=== PATIENT | female | born 2000 | race Two or more races ===

== ENCOUNTER 2024-05-27 07:07 | Emergency (ER) | payer MEDICAID, SELFPAY ==
[2024-05-27 07:24] VITALS: BP 124/84; PULSE 85; RESP 17; TEMP 37.1; O2SAT 98; BMI 29.2
--- NOTE | 2024-05-27 07:31 | XR_ITS ---
Examination: Complete OB ultrasound greater than 14 weeks Date and time of exam: May 27, 2024 0844 hours INDICATIONS: Vaginal bleeding beginning last night Findings: Viable intrauterine single fetus with single amniotic sac presentation variable Cardiac motion 144 BPM Placenta fundal grade 1 Umbilical cord insertion 3 vessel seen Amniotic fluid index 14.8 cm Cervix 4.3 cm Right ovary obscured by bowel gas Left ovary 4.0 cm arterial flow 27 mm left ovarian cyst. Composite estimated gestational age based on BPD, head circumference, abdominal circumference, femur length is 19 weeks 2 days Estimated weight 285 g. Survey of intracranial anatomy, spinal anatomy, abdominal anatomy, four-chamber heart performed with no abnormalities identified. Impression: Viable intrauterine gestation variable presentation No placental hemorrhage.
--- NOTE | 2024-05-27 07:31 | XR_ITS ---
Examination: Abdomen sonogram, Limited Date and time of exam: May 27, 2024 0826 hours INDICATIONS: Right upper abdominal pain and vomiting beginning 10:00 PM last night Technique: Real-time batres scale transabdominal sonographic images of the upper abdomen obtained. Findings: Normal gallbladder Normal common bile duct 0.3 cm Pancreatic head 2.5 cm Liver 18.5 cm fatty infiltration lobular contour no focal liver lesions Normal hepatopedal portal venous flow Patent IVC IMPRESSION: Normal gallbladder Primary hepatocellular disease
[2024-05-27 08:30] LABS: Basophils % (Auto) 0 % (0-2.5); Eosinophils % (Auto) 0 % (0-10); Hemoglobin 12.1 g/dL (12.0-16.0); Immature Granulocytes % (Auto) 0 % (0-0); Immature Granulocytes Auto 0.05 Thou/mm3 (0.00-0.00); Lymphocytes # (Auto) 1.8 Thou/mm3 (1.0-4.8); Lymphocytes % (Auto) 16 % (10-50); Mean Corpuscular HGB Conc 34.6 g/dl (31.0-37.0); Mean Corpuscular Hemoglobin 30.1 pg (25.0-35.0); Mean Corpuscular Volume 87 fL (80-100); Monocytes # (Auto) 0.6 Thou/mm3 (0.0-0.8); Monocytes % (Auto) 5 % (0-12); Neutrophils # (Auto) 9.1 Thou/mm3 (1.8-7.7); Neutrophils % (Auto) 79 % (37-80); Nucleated Red Blood Cell % 0 /100 WBC (0); Platelet Count 190 Thou/mm3 (140-440); RDW Standard Deviation 44.6 fL (36.4-46.3); Red Blood Count 4.02 Miln/mm3 (4.00-5.20); White Blood Count 11.6 Thou/mm3 (3.6-11.0)
[2024-05-27 08:52] LABS: Alanine Aminotransferase 15 U/L (10-49); Albumin, Serum 4.1 gm/dL (3.5-5.0); Albumin/Globulin Ratio 1.3 (1.2-2.2); Alkaline Phosphatase 61 U/L (46-116); Anion Gap 8 (7-16); Aspartate Amino Transferase 21 U/L (0-34); BUN/Creatinine Ratio 12 Ratio (12-20); Bilirubin,Total 0.5 mg/dL (0.3-1.2); Blood Urea Nitrogen 6 mg/dL (9-23); Calcium 9.6 mg/dL (8.3-10.6); Calcium (Corrected) 9.6 mg/dL (8.5-10.1); Carbon Dioxide 25.4 mMol/L (20.0-31.0); Chloride 104 mMol/L (98-107); Creatinine (Component) 0.5 mg/dL (0.6-1.3); Estimated Creatinine Clearance 156.8 mL/min (>60); Globulin 3.1 gm/dL (2.3-3.5); Glucose 101 mg/dL (74-106); Lipase 31 U/L (12-53); Osmolality,Calculated 271 (275-295); Potassium 3.7 mMol/L (3.4-5.1); Sodium 137 mMol/L (136-145); Total Protein 7.2 gm/dL (5.7-8.2); eGFR > 60 See Note
[2024-05-27 09:16] VITALS: BP 136/81; PULSE 83; RESP 18; TEMP 37; O2SAT 99
[2024-05-27 09:34] LABS: Beta HCG,Quantitative 6895 mIU/mL (<5.0)
--- NOTE | 2024-05-27 09:38 | EDNOTE_ITS ---
<Statement entered by Charlotte Lozano MD - 05/27/24 14:04> As co-signing physician, I was present and available for consult prn. I concur with the plan and care as documented by the midlevel provider. Nausea/Vomit./Diarrhea-RME/HPI General Chief complaint: Abdominal Pain Stated complaint: ABD PAIN AND VOMITING X 2200L 12 WKS Time Seen by Provider: 05/27/24 07:31 Arrival date/time: 05/27/24 07:07 24-year-old female with no significant medical problems presents to the emergency department today with complaints of nausea vomiting and upper abdominal pain patient reports being approximately 16 weeks Limitations: no limitations Related Data Previous Rx's ?Medication ?Instructions ?Recorded metoclopramide HCl 10 mg tablet 10 mg PO Q6H PRN nause a and 05/27/24 (Reglan) vomiting #30 tabs Allergies Allergy/AdvReac Type Severity Reaction Status Date / Time No Known Allergies Allergy Verified 05/27/24 07:09 Review of Systems Review of Systems Systems Reviewed: All systems reviewed, normal except as documented Constitutional Constitutional: Reports system reviewed and no additional complaints, except as documented, Denies fever(s) and Denies headache(s) Eyes Eyes: Reports system reviewed and no additional complaints, except as documented and Denies blurry vision ENT Ears, Nose, Mouth, and Throat: Reports system reviewed and no additional complaints, except as documented, Denies headache(s), Denies nasal congestion and Denies nasal discharge Cardiovascular Cardiovascular: Reports system reviewed and no additional complaints, except as documented, Denies chest pain and Denies dyspnea Respiratory Respiratory: Reports system reviewed and no additional complaints, except as documented, Denies chest congestion, Denies cough and Denies dyspnea Gastrointestinal Gastrointestinal: Reports system reviewed and no additional complaints, except as documented, Reports abdominal pain, Reports nausea and Reports vomiting Integumentary/Breasts Skin/Breast: Reports system reviewed and no additional complaints, except as documented and Denies rash Neurologic Neurologic: Reports system reviewed and no additional complaints, except as documented, Reports as per HPI and Denies headache(s) Past Medical History Social History SMOKING STATUS: Never smoker ED Exam General Limitations: Present no limitations General appearance: Present alert and in no apparent distress Head Head exam: Present atraumatic, normocephalic and normal inspection Eye Eye exam: Present normal appearance, PERRL and EOMI; Absent conjunctival injection ENT ENT exam: Present normal exam, normal oropharynx and mucous membranes moist Neck Neck exam: Present normal inspection, full ROM and trachea midline Chest Chest inspection: Present normal inspection and symmetric chest wall rise Respiratory Respiratory exam: Present normal lung sounds bilaterally; Absent respiratory distress Cardiovascular Cardiovascular exam: Present regular rate, normal rhythm and normal heart sounds Abdominal Exam Abdominal exam: Present soft and normal bowel sounds; Absent distention, tenderness, guarding, rebound or rigidity Abdominal tenderness: Present epigastrium and mild Extremities Exam Extremities exam: Present normal inspection and full ROM Back Exam Back exam: Present normal inspection and full ROM Neurological Exam Neurological exam: Present alert, oriented X3 and CN II-XII intact Psychiatric Psychiatric exam: Present normal affect and normal mood Skin Skin exam: Present warm, dry, intact and normal color Course Quality Measures none Orders Category Date Time Status US OB >= 14 weeks Fetus Stat Exams 05/27/24 07:31 Completed US gall bladder Stat Exams 05/27/24 07:31 Completed ABO/RH Type Stat Lab 05/27/24 07:57 Completed Beta HCG,Quantitative Stat Lab 05/27/24 07:57 Completed CBC Stat Lab 05/27/24 07:57 Completed Comprehensive Metabolic Panel Stat Lab 05/27/24 07:57 Completed Lipase Stat Lab 05/27/24 07:57 Completed UA, C/S IF [Urinalysis, C/S if Indicated] Stat Lab 05/27/24 10:00 Completed Vital Signs Vital signs: Vital Signs Temperature 98.7 F 05/27/24 07:24 Pulse Rate 85 05/27/24 07:24 Respiratory Rate 17 05/27/24 07:24 Blood Pressure 124/84 05/27/24 07:24 Pulse Oximetry (%) 98 05/27/24 07:24 Oxygen Delivery Method Room Air 05/27/24 07:24 O2 saturation 98% room air within normal limits Nausea/Vomiting/Diarrhea MDM Narrative MDM Narrative:: 24-year-old female with no significant medical problems presents to the emergency department today with complaints of nausea vomiting and upper ab dominal pain patient reports being approximately 16 weeks On exam patient well-appearing patient does not appear ill or toxic patient does not appear in acute distress Lab work and ultrasound obtained no acute emergent findings noted patient is measuring approximate 19 weeks and 2 days this was relayed to the patient Patient discharged home in no distress to follow-up with primary care doctor in the next 24 to 48 hours and for any worsening symptoms to return to the ER immediately Patient data External records reviewed:: [facility] previous records Clinical information provided by:: patient Social determinants that could affect healthcare access:: none Patient has the following chronic illnesses:: None How is presenting disease/condition affected by chronic disease/condition?: no chronic disease Evaluation data The following diagnostics were reviewed and interpreted by me:: lab results and radiology exam(s) Lab and/or radiology exams considered but not ordered:: Labs and radiology obtained Interpretation Summary: Reviewed by me Medications / Prescriptions Medications / Prescriptions considered but not ordered:: Given Medication administrations:: Given Consultations Consultation(s) initiated? (list below): No Diagnosis Nausea Differential Diagnosis: traveler's diarrhea, food poisoning and gastroenteritis Most likely diagnosis given after review of the tests above:: Nausea vomiting Admission Indicated Admission indicated?: not indicated Admission Request Was there a request for admission?: No Disposition Plan Disposition Plan: Discharge Discharge Attestation Discharge Attestation: The patient and all family members were given an opportunity to ask questions and understood the discharge instructions. Discharge instructions specifically effects, indications for sooner follow up or return to the emergency department, and the expected course of current diagnosis. Patient condition: Stable Discharge Plan Plan Patient Disposition: HOME (Self Care) Disposition Comment: Stable Prescriptions/Referrals Prescriptions/Med Rec: New metoclopramide HCl [Reglan] 10 mg tablet 10 mg PO Q6H PRN (Reason: nausea and vomiting) Qty: 30 0RF Referrals: Roque Mayes MD [Primary Care Provider] - In 1 week Problem List Clinical Impression: Nausea and vomiting during Patient/Caregiver Discharge Instructions Education Materials: ED Vomiting (Adult) Additional Instructions: Please follow up with your primary care doctor in the next 24-48hrs for any worsening symptoms return here immediately Print Language: Emirati Stand Alone Forms: Gwendolyn Award Info., Patient Portal Info Letter PA/KATHE Supervising Physician ANDREA/KATHE Supervising Physician: Dr. LOZANO
[2024-05-27 10:08] LABS: Collection Type, Urine Clean Catch
[2024-05-27 10:25] LABS: Bacteria,Urine Rare; Bilirubin,Urine Negative (Negative); Blood,Urine Negative (Negative); Clarity,Urine Clear (Clear/Hazy); Color,Urine Colorless (Lt Yel-Yel); Culture Indicated,Urine Not Indicated; Glucose, Urine Negative (Negative); Hyaline Casts,Urine < 1 /hpf (0-1); Ketones,Urine Negative (Negative); Leukocyte Esterase,Urine Positive (Negative); Nitrite,Urine Negative (Negative); Protein,Urine Negative (Neg - Trace); RBC,Urine 1 /hpf (0-3); Specific Gravity,Urine 1.006 (1.001-1.035); Squamous Epithelial Cell,Urine 1 /hpf (0-5); Urobilinogen,Urine Negative mg/dL (0.0-1.0); WBC,Urine < 1 /hpf (0-5)
== END 2024-05-27 09:48 | disposition home or self-care (01) ==
PROVIDERS: Nurse Practitioner Primary Care; Emergency Provider Emergency Medicine; PCP Internal Medicine
DX: O21.9 Vomiting of pregnancy, unspecified (principal); O99.891 Other specified diseases and conditions complicating pregnancy; R10.11 Right upper quadrant pain; Z3A.19 19 weeks gestation of pregnancy
CPT/HCPCS: 36415; 76705; 76805; 80053; 81001; 83690; 84702; 85025; 86900; 86901; 99284

== ENCOUNTER 2024-08-21 09:33 | Outpatient (AMB) | payer MEDICAID, SELFPAY ==
[2024-08-21 09:59] VITALS: BP 128/82; PULSE 122; RESP 20; TEMP 36.6; O2SAT 95; BMI 29.7
--- NOTE | 2024-08-21 09:59 | OBCLNT_ITS ---
Vital Signs 08/21/24 09:59 Height 1.55 m Height Method Stated Weight 71.384 kg Weight Measurement Method Standing Scale BMI 29.7 BP 128/82 Blood Pressure Source Automatic Cuff Blood Pressure Location Right Upper Arm Position Sitting Respiration 20 Pulse 122 H Pulse Source Monitor Temp 97.9 F Temp Source Oral Pulse Oximetry (%) 95 Oxygen Delivery Method Room Air Allergies/Home Meds Allergies & Medications Allergies No Known Allergies Allergy (Verified 08/21/24 10:00) Medication Reconciliation metoclopramide HCl 10 mg tablet (Reglan) 10 mg PO Q6H PRN nausea and vomiting #30 tabs 05/27/24 [Rx Confirmed 08/21/24] aspirin 81 mg tablet,delayed release (Adult Aspirin Regimen) 81 mg PO QDAY 30 days #30 tabs 08/21/24 [Rx] blood sugar diagnostic (Blood Glucose Test strips) #10 ea 08/21/24 [Rx] blood-glucose meter #1 ea 08/21/24 [Rx] lancets #100 ea 08/21/24 [Rx] Intake Visit Data Collection New Patient or Established: Established Patient (seen at [facility] within 3 years) Reason for Visit:: OBI TRANSFER Seen by Clinical Staff ONLY (RN/MA): No Cager Operator Required: No Do You Feel Safe at Home: Yes Authorities Contacted: N/A PCP or OBGYN visit in last 3 months: Yes Hx Now: Yes Are you currently on any form of Control: No Last menstrual period: 01/11/24 Pain Present Currently: No Pain Scale Used: Cisneros-Junior/Numerical Pain scale:: 0 Smoking Status Smoking Status: Never smoker Questionnaires Covid-19 Vaccine Questionnaire Has patient been vacinated for Covid-19 Have you been vacinated for Covid-19: No PHQ-9 PHQ-2 Over the last 2 weeks, how often have you been bothered by any of the following problems? 1. Little interest or pleasure in doing things: not at all 2. Feeling down, depressed, or hopeless: not at all Total score: 0 PHQ-9 3. Trouble falling or staying asleep, or sleeping too much: Not at all 4. Feeling tired or having little energy: Not at all 5. Poor appetite or overeating: Not at all 6. Feeling bad about yourself - or that you are a failure or have let yourself or your family down: Not at all 7. Trouble concentrating on things, such as reading the newspaper or watching television: Not at all 8. Moving or speaking so slowly that other people could have noticed? - Or the opposite - being so fidgety or restless that you have been moving around a lot more than usual: not at all 9. Thoughts that you would be better off or of hurting yourself in some way: Not at all Total score: 0 Source: Developed by Drs. Anderson Guzman, Jasmin Mai, Yvan Arambula and colleagues, with an educational michela from [employer]. Depression screen completed yes Social History Living Situation History Marital Status: Lives With: Family Housing: Apartment Tobacco History Smoking Status: Never smoker Second Hand Smoke Exposure: No Alcohol History Alcohol Intake: Never Domestic Abuse History Do You Feel Safe at Home: Yes Past Medical History Past Medical History Have you ever been diagnosed with any of the following: Endocrine Problems Diabetes Mellitus Type 2: No (MOTHER) History of Present Illness HPI Narrative 24 yo IUP 32w3 for OBI. transfer fro Dr Cruz for care. 1st visit in first tri, uncomplicated . lmp 01/11/24. EDC 10/15/24. menses q month. denies existing medical problem, no social habit, no surgery. no PTL. complaints. first was uncomplicated. taking PNV. 1 hr gtt: 192. 3 hr gtt was normal/all value. NIPT/carrier screen wnl, 35/11.7/176,UT-, HBSAG-,HIV-,HC-, GC/CT-,O+,abs-, RPR::NR, rub:NI. a1c: 4.9, takes PNV OB Initial Visit OB Flowsheet OB Flowsheet Initial Weight: Not Recorded Date -?-?-?-?-?-?-?-?-?-?-?-?- EGA Weight BP Alb Glu CTX Pres Fundal ht FHR Mov Dilation Station Effacement Hx Notes Visit Note 08/21/24 -?-?-?-?-?-?-?-?-?-?-?-?- 31w 6d 71.384 kg 128/82 absent cephalic 31 146 active 24 yo G@p! at 32w3 for OBI, transfer from Dr. Cruz. elevated 1 hr GTT: 192. 3 hr:wnl, A1c< 4.9. fetus active, no PTL complaints. TDAP today, FKC bid, review lab with patient: start glucose monitoring 4 x/day, review GDM diet, ptl precaution, discuss fkc, continue PNV, schedule MFM scan, order glucometer/strips and lancets, start low dose ASA, rtc 2 week OB check, ante testing nv. schedule at [facility] for diabetic teaching. rtc 2week, TDAP Menstrual History Menstrual reliability: definite Flow: normal Menstrual regularity: irregular Monthly: No Age at menarche: 15 On control pills at conception: No Other symptoms: HEADACHES OB History : 2 Para: 1 # of Living Children: 1 Delivery History 1st : Child's name: BRIANNA date: 09/11/18 sex: female Gestational age at delivery (weeks): 40 Delivery type: vaginal Delivery complications: NONE History of depression before or after : No Infection History & Risk Evaluation History of STDs: none Genetic Screening & History Genetic Screening/Teratology Counseling - Includes patient, baby's father, or anyone in either family with: 1. Patient's age 35 years or older as of estimated date of delivery: No 2. Thalassemia (Latvian, Chinese, Mediterranean, or Background); MCV less than 80: No 3. Neural Tube Defect (Meningomyelocele, Spina Bifida, or Anencephaly): No 4. Congenital Heart Defect: No 5. Down Syndrome: No 6. Franco-Sachs (Ashkenazi Yarsanism, Cajun, Gibraltarian Marty): No 7. Selina Disease (Ashkenazi Yarsanism): No 8. Familial Dysautonomia (Ashkenazi Yarsanism): No 9. Sickle Cell Disease or Trait (): No 10. Hemophilia or other blood disorders: No 11. Muscular Dystrophy: No 12. Cystic Fibrosis: No 13. Brookings's Chorea: No 14. Mental Retardation/Autism: No 15. Other inherited genetic or chromosomal disorder: No 16. Maternal Metabolic Disorder (EG,TYPE 1 Diabetes, PKU): No 17. Patient or baby's father had a child with defects not listed above: No 18. Recurrent loss or a stillbirth: No 19. Medications (including supplements, vitamins, herbs or otc drugs)/illicit/recreational drugs/alcohol since last menstrual period: No 20. Any other: No Infection History 1. Live with someone with TB or exposed to TB: No 2. Rash or viral illness since last menstrual period: No 3. Hepatitis B,C: No Other (see comments) Source: [employer] Review of Systems Review of Systems Systems Reviewed: All systems reviewed, normal except as documented Exam General Limitations: no limitations General Appearance: alert, in no apparent distress, comfortable, cooperative, healthy appearing, well developed and well groomed Head Head exam: atraumatic, normocephalic and normal inspection Chest Chest inspection: Present normal inspection and symmetric chest wall rise Resp Respiratory exam: Present normal lung sounds bilaterally Card Cardiovascular exam: Present regular rate, normal rhythm and normal heart sounds Abdominal Abdominal exam: Present soft and normal bowel sounds Psych Psychiatric exam: Present normal affect and normal mood Office Procedures OB Clinic LOC & Office Proc's Nursing/Assessment Patient Status: Established Patient OB Clinic Nursing Assessment: Medication Reconciliation, Update PMH in EMR and Vital Signs OB Clinic Coordination of Care: Complex Care and Chronic Disease 1-5, Consent,re cords obtained, informed consent, Education Simp Pt/Fam, Lab and Imaging orders, Results/Orders obtained and Staff clarify orders Special Needs: Heart tones Miscellaneous Interventions: Blood/Urine Collection Established Patient Charge Established Patient Point Assignment: 165 Established Patient Point Charge: EP Level 5 (160-above) Injection/Vaccine Admin Admin 1st Vaccine: Yes Immunizations diphth,pertus(acell),tetanus 2.5 Lf unit-8 mcg-5 Lf/0.5mL IM syringe Performing Provider: Niki Winslow CNM Performing Location: [facility] Administered by: Viktoria Gale MA on 08/21/24 11:01 Dose Route Admin Location Dispensed Lot Number Expiration Date [facility] Office Rental Clerk 0.5 mL IM Right Deltoid 0.5 mL [id number] 07/05/26 [id number] [employer] [facility] V[facility] Given Date VIS Provided VIS Publication Date 08/21/24 Single Vaccine 24 Eligibility Eligibility Date Funding Source Public Non-[facility] Assessment & Plan Diagnosis / Problem List (1) Normal in multigravida in third trimester: Status: Acute (2) Gestational diabetes mellitus in , diet controlled: Status: Acute Plan continue PNV, start glucose monitoring, kit ordered, schedule for GDM teaching at Dr Cruz, begin nst/bpp nv, TDAP today, discuss GDM diet, walk 40 minute daily,ptl precaution, schedule anatomy scan with mfm Additional Plan Follow Up: 2 Weeks (obc)
== END 2024-08-21 10:43 | disposition home or self-care (01) ==
LOC: HODSOBC 09:33
PROVIDERS: PCP Internal Medicine; Referring Provider Internal Medicine; Supervising Provider Advanced Practice Midwife; Visit Provider Advanced Practice Midwife
DX: O09.893 Supervision of other high risk pregnancies, third trimester (principal); Z3A.31 31 weeks gestation of pregnancy; O24.410 Gestational diabetes mellitus in pregnancy, diet controlled; Z23 Encounter for immunization
CPT/HCPCS: 81001; 90471; 90715; 99215; G0463

== ENCOUNTER 2024-09-04 11:00 | Outpatient (AMB) | payer MEDICAID, SELFPAY ==
[2024-09-04 11:30] VITALS: BP 116/74; PULSE 99; RESP 18; TEMP 36.2; O2SAT 98; BMI 29.7
--- NOTE | 2024-09-04 11:30 | OBCLNT_ITS ---
Vital Signs 09/04/24 11:30 Height 1.55 m Height Method Stated Weight 71.327 kg Weight Measurement Method Standing Scale BMI 29.7 BP 116/74 Blood Pressure Source Automatic Cuff Blood Pressure Location Left Upper Arm Position Sitting Respiration 18 Pulse 99 Pulse Source Monitor Temp 97.2 F Temp Source Oral Pulse Oximetry (%) 98 Oxygen Delivery Method Room Air Allergies/Home Meds Allergies & Medications Allergies No Known Allergies Allergy (Verified 09/04/24 11:31) Medication Reconciliation metoclopramide HCl 10 mg tablet (Reglan) 10 mg PO Q6H PRN nausea and vomiting #30 tabs 05/27/24 [Rx Confirmed 09/04/24] aspirin 81 mg tablet,delayed release (Adult Aspirin Regimen) 81 mg PO QDAY 30 days #30 tabs 08/21/24 [Rx Confirmed 09/04/24] blood sugar diagnostic (Blood Glucose Test strips) #10 ea 08/21/24 [Rx Confirmed 09/04/24] blood-glucose meter #1 ea 08/21/24 [Rx Confirmed 09/04/24] lancets #100 ea 08/21/24 [Rx Confirmed 09/04/24] Intake Visit Data Collection New Patient or Established: Established Patient (seen at [facility] within 3 years) Reason for Visit:: OBC VISIT Seen by Clinical Staff ONLY (RN/MA): No Store Host Required: No Do You Feel Safe at Home: Yes Authorities Contacted: N/A PCP or OBGYN visit in last 3 months: Yes Date of Last PCP or OBGYN visit: 08/21/24 Hx Now: Yes Are you currently on any form of Control: No Pain Present Currently: No Pain Scale Used: Cisneros-Junior/Numerical Pain scale:: 0 Smoking Status Smoking Status: Never smoker Questionnaires Covid-19 Vaccine Questionnaire Has patient been vacinated for Covid-19 Have you been vacinated for Covid-19: Yes PHQ-9 PHQ-2 Over the last 2 weeks, how often have you been bothered by any of the following problems? 1. Little interest or pleasure in doing things: not at all 2. Feeling down, depressed, or hopeless: not at all Total score: 0 PHQ-9 3. Trouble falling or staying asleep, or sleeping too much: Not at all 4. Feeling tired or having little energy: Not at all 5. Poor appetite or overeating: Not at all 6. Feeling bad about yourself - or that you are a failure or have let yourself or your family down: Not at all 8. Moving or speaking so slowly that other people could have noticed? - Or the opposite - being so fidgety or restless that you have been moving around a lot more than usual: not at all 9. Thoughts that you would be better off or of hurting yourself in some way: Not at all If you checked off any problems, how difficult have these problems made it for you to do your work, take care of things at home, or get along with other people?: not difficult at all Source: Developed by Drs. Anderson Guzman, Jasmin Mai, Yvan Arambula and colleagues, with an educational michela from [employer]. 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 at 32w3 for OBI, transfer from Dr. Cruz. elevated 1 hr GTT: 192. 3 hr:wnl, A1c< 4.9. fetus active, no PTL complaints. TDAP today, FKC bid, review lab with patient: start glucose monitoring 4 x/day, review GDM diet, ptl precaution, discuss fkc, continue PNV, schedule MFM scan, order glucometer/strips and lancets, start low dose ASA, rtc 2 week OB check, ante testing nv. schedule at [facility] for diabetic teaching. rtc 2week, TDAP 09/04/24 -?-?-?-?-?-?-?-?-?-?-?-?- 33w 6d 71.327 kg 116/74 absent cephalic 33 146 active reports good FM, no VB or PTL. no c/o UC. compliant with GDM diet.anf glucose monitoring. sugars at goal 90%, compliannt with GDM diet. ptl prec given, fkc bid. RTC 2 week obc, will schedule NST/MAURER weekly. MFM pending, rtc 2 week GIULIANO Calculator Estimated Delivery Date Method Current WG Current Estimate 10/17/24 LMP (Certain) 33w 6d Notes Visit Date: 08/21/24 Last Updated by: Niki Winslow, JOSEF , LMP 01/10/25. EDC: 10/15/24. GDM: 1hr gtt: 192, 3hr gtt wnl, A1c:4.9, O+,abs-,rpr;;nr, rub ni, HBSAG-/HIV-,GC-/CT-, NT/AFP,carrier screen- Office Procedures OB Clinic LOC & Office Proc's Nursing/Assessment Patient Status: Established Patient OB Clinic Nursing Assessment: Medication Reconciliation, Update PMH in EMR and Vital Signs OB Clinic Coordination of Care: Education Complex Pt/Fam, Consent,records obtained, informed consent, Lab and Imaging orders, Results/Orders obtained and Staff clarify orders Special Needs: Heart tones Established Patient Charge Established Patient Point Assignment: 115 Established Patient Point Charge: EP Level 3 (80-115) Assessment & Plan Diagnosis / Problem List (1) Normal in multigravida in third trimester: Status: Acute (2) Gestational diabetes mellitus in , diet controlled: Status: Acute Plan continue monitoring BS x4 daily,continue GDM diet, review PTL precaution, fkc bid, hydrate, will sched week NST/BPP, MFM appointment pending. continue pnv, rtc 2 wk OBc Additional Plan Follow Up: 2 Weeks (obc)
== END 2024-09-04 11:42 | disposition home or self-care (01) ==
LOC: HODSOBC 11:00
PROVIDERS: PCP Internal Medicine; Referring Provider Internal Medicine; Supervising Provider Advanced Practice Midwife; Visit Provider Advanced Practice Midwife
DX: O09.893 Supervision of other high risk pregnancies, third trimester (principal); Z3A.33 33 weeks gestation of pregnancy; O24.410 Gestational diabetes mellitus in pregnancy, diet controlled
CPT/HCPCS: 99213; G0463

== ENCOUNTER 2024-09-17 15:06 | Outpatient (AMB) | payer MEDICAID, SELFPAY ==
[2024-09-17 15:35] VITALS: BP 117/76; PULSE 102; RESP 18; TEMP 36.2; O2SAT 98; BMI 29.9
--- NOTE | 2024-09-17 15:35 | OBCLNT_ITS ---
Vital Signs 09/17/24 15:35 Height 1.55 m Height Method Stated Weight 71.781 kg Weight Measurement Method Standing Scale BMI 29.9 BP 117/76 Blood Pressure Source Automatic Cuff Blood Pressure Location Left Upper Arm Position Sitting Respiration 18 Pulse 102 H Pulse Source Monitor Temp 97.2 F Temp Source Oral Pulse Oximetry (%) 98 Oxygen Delivery Method Room Air Allergies/Home Meds Allergies & Medications Allergies No Known Allergies Allergy (Verified 09/17/24 15:36) Medication Reconciliation metoclopramide HCl 10 mg tablet (Reglan) 10 mg PO Q6H PRN nausea and vomiting #30 tabs 05/27/24 [Rx Confirmed 09/17/24] aspirin 81 mg tablet,delayed release (Adult Aspirin Regimen) 81 mg PO QDAY 30 days #30 tabs 08/21/24 [Rx Confirmed 09/17/24] blood sugar diagnostic (Blood Glucose Test strips) #10 ea 08/21/24 [Rx Confirmed 09/17/24] blood-glucose meter #1 ea 08/21/24 [Rx Confirmed 09/17/24] lancets #100 ea 08/21/24 [Rx Confirmed 09/17/24] Intake Visit Data Collection New Patient or Established: Established Patient (seen at [facility] within 3 years) Reason for Visit:: OBC Seen by Clinical Staff ONLY (RN/MA): No Resource Management Planner Required: No Do You Feel Safe at Home: Yes Authorities Contacted: N/A PCP or OBGYN visit in last 3 months: Yes Date of Last PCP or OBGYN visit: 09/04/24 Hx Now: Yes Are you currently on any form of Control: No Pain Present Currently: No Pain Scale Used: Cisneros-Junior/Numerical Pain scale:: 0 Smoking Status Smoking Status: Never smoker Questionnaires Covid-19 Vaccine Questionnaire Has patient been vacinated for Covid-19 Have you been vacinated for Covid-19: Yes PHQ-9 PHQ-2 Over the last 2 weeks, how often have you been bothered by any of the following problems? 1. Little interest or pleasure in doing things: not at all 2. Feeling down, depressed, or hopeless: not at all Total score: 0 PHQ-9 3. Trouble falling or staying asleep, or sleeping too much: Not at all 4. Feeling tired or having little energy: Not at all 5. Poor appetite or overeating: Not at all 6. Feeling bad about yourself - or that you are a failure or have let yourself or your family down: Not at all 7. Trouble concentrating on things, such as reading the newspaper or watching television: Not at all 8. Moving or speaking so slowly that other people could have noticed? - Or the opposite - being so fidgety or restless that you have been moving around a lot more than usual: not at all 9. Thoughts that you would be better off or of hurting yourself in some way: Not at all Total score: 0 If you checked off any problems, how difficult have these problems made it for you to do your work, take care of things at home, or get along with other people?: not difficult at all Source: Developed by Drs. Anderson Guzamn, Jasmin Mai, Yvan Arambula and colleagues, with an educational michela from [employer]. 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 at 32w3 for OBI, transfer from Dr. Cruz. elevated 1 hr GTT: 192. 3 hr:wnl, A1c< 4.9. fetus active, no PTL complaints. TDAP today, FKC bid, review lab with patient: start glucose monitoring 4 x/day, review GDM diet, ptl precaution, discuss fkc, continue PNV, schedule MFM scan, order glucometer/strips and lancets, start low dose ASA, rtc 2 week OB check, ante testing nv. schedule at [facility] for diabetic teaching. rtc 2week, TDAP 09/04/24 -?-?-?-?-?-?-?-?-?-?-?-?- 33w 6d 71.327 kg 116/74 absent cephalic 33 146 active reports good FM, no VB or PTL. no c/o UC. compliant with GDM diet.anf glucose monitoring. sugars at goal 90%, compliannt with GDM diet. ptl prec given, fkc bid. RTC 2 week obc, will schedule NST/MAURER weekly. MFM pending, rtc 2 week 09/17/24 -?-?-?-?-?-?-?-?-?-?-?-?- 35w 5d 71.781 kg 117/76 absent cephalic 35 145 active fetus active. compliant with GDM diet and glucose monitoring. reports BS at goal. weekly NST and MFM sono pending.denies LOF,VB or UC, FKC bid fkc bid, f/u on week NST/BPP. f/u on MFM sono, GBS today, review GDM diet and glucose monitoring. discuss fkc bid. continue PNV, increase fluid. rtc 1 week obc GIULIANO Calculator Estimated Delivery Date Method Current WG Current Estimate 10/17/24 LMP (Certain) 35w 5d Notes Visit Date: 08/21/24 Last Updated by: Niki Winslow, JOSEF , LMP 01/10/25. EDC: 10/15/24. GDM: 1hr gtt: 192, 3hr gtt wnl, A1c:4.9, O+,abs-,rpr;;nr, rub ni, HBSAG-/HIV-,GC-/CT-, NT/AFP,carrier screen- Office Procedures OB Clinic LOC & Office Proc's Nursing/Assessment Patient Status: Established Patient OB Clinic Nursing Assessment: Medication Reconciliation, Update PMH in EMR and Vital Signs OB Clinic Coordination of Care: Education Complex Pt/Fam, Consent,records obtained, informed consent, Lab and Imaging orders and Staff clarify orders Special Needs: Heart tones Established Patient Charge Established Patient Point Assignment: 110 Established Patient Point Charge: EP Level 3 (80-115) Assessment & Plan Diagnosis / Problem List (1) Gestational diabetes mellitus in , diet controlled: Status: Acute (2) Normal in multigravida in third trimester: Status: Acute Plan Continue to monitor glucose blood sugars 4 times a day a day. Continue DD GDM diet.. NST BPP and MFM referral are still pending. Walk 40 minutes a day. Increase fluids. Practice kick count twice daily. GBS today. I discussed labor precautions. Hydrate. Return in a week OB check Additional Plan Follow Up: 1 Week (obc)
== END 2024-09-17 16:12 | disposition home or self-care (01) ==
LOC: HODSOBC 15:06
PROVIDERS: PCP Internal Medicine; Referring Provider Internal Medicine; Supervising Provider Advanced Practice Midwife; Visit Provider Advanced Practice Midwife
DX: O09.893 Supervision of other high risk pregnancies, third trimester (principal); O24.410 Gestational diabetes mellitus in pregnancy, diet controlled; Z3A.35 35 weeks gestation of pregnancy; Z36.85 Encounter for antenatal screening for Streptococcus B
CPT/HCPCS: 99213; G0463

== ENCOUNTER 2024-09-29 15:01 | Outpatient (AMB) | payer MEDICAID, SELFPAY ==
[2024-09-29 15:35] VITALS: BP 120/70; PULSE 90; RESP 18; TEMP 36.2; O2SAT 98; BMI 30.4
--- NOTE | 2024-09-29 15:35 | AMB.OBVISIT ---
Vital Signs 09/29/24 15:35 Height 1.55 m Height Method Stated Weight 73.085 kg Weight Measurement Method Standing Scale BMI 30.4 BP 120/70 Blood Pressure Source Automatic Cuff Blood Pressure Location Left Upper Arm Position Sitting Respiration 18 Pulse 90 Pulse Source Monitor Temp 97.2 F Temp Source Oral Pulse Oximetry (%) 98 Oxygen Delivery Method Room Air Allergies/Home Meds Allergies & Medications Allergies No Known Allergies Allergy (Verified 09/29/24 15:36) Medication Reconciliation metoclopramide HCl 10 mg tablet (Reglan) 10 mg PO Q6H PRN nausea and vomiting #30 tabs 05/27/24 [Rx Confirmed 09/29/24] aspirin 81 mg tablet,delayed release (Adult Aspirin Regimen) 81 mg PO QDAY 30 days #30 tabs 08/21/24 [Rx Confirmed 09/29/24] blood sugar diagnostic (Blood Glucose Test strips) #10 ea 08/21/24 [Rx Confirmed 09/29/24] blood-glucose meter #1 ea 08/21/24 [Rx Confirmed 09/29/24] lancets #100 ea 08/21/24 [Rx Confirmed 09/29/24] Intake Visit Data Collection New Patient or Established: Established Patient (seen at [facility] within 3 years) Reason for Visit:: OBC Seen by Clinical Staff ONLY (RN/MA): No Rn Lactation Consultant Required: No Rn Lactation Consultant's name/title: PROVIDER SPEAKS OCCITAN Do You Feel Safe at Home: Yes Authorities Contacted: N/A PCP or OBGYN visit in last 3 months: Yes Date of Last PCP or OBGYN visit: 09/17/24 Hx Now: Yes Are you currently on any form of Control: No Pain Present Currently: No Pain Scale Used: Cisneros-Junior/Numerical Pain scale:: 0 Smoking Status Smoking Status: Never smoker Questionnaires Covid-19 Vaccine Questionnaire Has patient been vacinated for Covid-19 Have you been vacinated for Covid-19: No PHQ-9 PHQ-2 Over the last 2 weeks, how often have you been bothered by any of the following problems? 1. Little interest or pleasure in doing things: not at all 2. Feeling down, depressed, or hopeless: not at all Total score: 0 PHQ-9 3. Trouble falling or staying asleep, or sleeping too much: Not at all 4. Feeling tired or having little energy: Not at all 5. Poor appetite or overeating: Not at all 6. Feeling bad about yourself - or that you are a failure or have let yourself or your family down: Not at all 7. Trouble concentrating on things, such as reading the newspaper or watching television: Not at all 8. Moving or speaking so slowly that other people could have noticed? - Or the opposite - being so fidgety or restless that you have been moving around a lot more than usual: not at all 9. Thoughts that you would be better off or of hurting yourself in some way: Not at all Total score: 0 If you checked off any problems, how difficult have these problems made it for you to do your work, take care of things at home, or get along with other people?: not difficult at all Source: Developed by Drs. Anderson Guzman, Jasmin Mai, Yvan Arambula and colleagues, with an educational michela from [employer]. 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 at 32w3 for OBI, transfer from Dr. Cruz. elevated 1 hr GTT: 192. 3 hr:wnl, A1c< 4.9. fetus active, no PTL complaints. TDAP today, FKC bid, review lab with patient: start glucose monitoring 4 x/day, review GDM diet, ptl precaution, discuss fkc, continue PNV, schedule MFM scan, order glucometer/strips and lancets, start low dose ASA, rtc 2 week OB check, ante testing nv. schedule at [facility] for diabetic teaching. rtc 2week, TDAP 09/04/24 <del>?</del> 33w 6d 71.327 kg 116/74 absent cephalic 33 146 active reports good FM, no VB or PTL. no c/o UC. compliant with GDM diet.anf glucose monitoring. sugars at goal 90%, compliannt with GDM diet. ptl prec given, fkc bid. RTC 2 week obc, will schedule NST/MAURER weekly. MFM pending, rtc 2 week 09/17/24 <del>?</del> 35w 5d 71.781 kg 117/76 absent cephalic 35 145 active fetus active. compliant with GDM diet and glucose monitoring. reports BS at goal. weekly NST and MFM sono pending.denies LOF,VB or UC, FKC bid fkc bid, f/u on week NST/BPP. f/u on MFM sono, GBS today, review GDM diet and glucose monitoring. discuss fkc bid. continue PNV, increase fluid. rtc 1 week obc 09/29/24 <del>?</del> 37w 3d 73.085 kg 120/70 absent cephalic 36 140 active fetus active per patient, sugars at goal 95%, denies uc,no VB,no leaking weekly NST/BPP pending approval, discuss labor precaution, fkc bid, sugars at goal 95%. compliant with gdm diet, continue fkc bid, schedule IOL 10/19/24. rtc 1 week OBC GIULIANO Calculator Estimated Delivery Date Method Current WG Current Estimate 10/17/24 LMP (Certain) 37w 3d Notes Visit Date: 08/21/24 Last Updated by: Niki Winslow CNM , LMP 01/10/25. EDC: 10/15/24. GDM: 1hr gtt: 192, 3hr gtt wnl, A1c:4.9, O+,abs-,rpr;;nr, rub ni, HBSAG-/HIV-,GC-/CT-, NT/AFP,carrier screen- Office Procedures OB Clinic LOC & Office Proc's Nursing/Assessment Patient Status: Established Patient OB Clinic Nursing Assessment: Medication Reconciliation, Update PMH in EMR and Vital Signs OB Clinic Coordination of Care: Education Complex Pt/Fam, Consent,records obtained, informed consent, Lab and Imaging orders, Results/Orders obtained and Staff clarify orders Special Needs: Heart tones Established Patient Charge Established Patient Point Assignment: 115 Established Patient Point Charge: EP Level 3 (80-115) Assessment & Plan Diagnosis / Problem List (1) Gestational diabetes mellitus in , diet controlled: Status: Acute (2) Normal in multigravida in third trimester: Status: Acute Plan continue GDM diet and glucose monitoring, fkc bid. discuss labor precaution. schedule IOL 10/19/24. week NST/BPP pending approval
== END 2024-09-29 15:32 | disposition home or self-care (01) ==
LOC: HODSOBC 15:01
PROVIDERS: PCP Internal Medicine; Referring Provider Internal Medicine; Supervising Provider Advanced Practice Midwife; Visit Provider Advanced Practice Midwife
DX: O09.893 Supervision of other high risk pregnancies, third trimester (principal); O24.410 Gestational diabetes mellitus in pregnancy, diet controlled; Z3A.37 37 weeks gestation of pregnancy
CPT/HCPCS: 99213; G0463

== ENCOUNTER 2024-10-13 14:17 | Outpatient (AMB) | payer MEDICAID, SELFPAY ==
--- NOTE | 2024-10-13 14:44 | OBCLNT_ITS ---
Vital Signs 10/13/24 14:46 Height 1.55 m Height Method Measured Weight 73.255 kg Weight Measurement Method Standing Scale BMI 30.4 BP 131/83 H Blood Pressure Source Automatic Cuff Blood Pressure Location Right Upper Arm Position Sitting Respiration 17 Pulse 92 Pulse Source Monitor Temp 98.1 F Temp Source Temporal Artery Scan Pulse Oximetry (%) 95 Oxygen Delivery Method Room Air Allergies/Home Meds Allergies & Medications Allergies No Known Allergies Allergy (Verified 10/20/24 09:33) Medication Reconciliation blood sugar diagnostic (Blood Glucose Test strips) #10 ea 08/21/24 [Rx Confirmed 10/20/24] blood-glucose meter #1 ea 08/21/24 [Rx Confirmed 10/20/24] lancets #100 ea 08/21/24 [Rx Confirmed 10/20/24] ferrous sulfate 1 tab PO QDAY 10/15/24 [History Confirmed 10/20/24] ibuprofen 600 mg tablet 600 mg PO Q6H PRN pain #30 tabs 10/15/24 [Rx Confirmed 10/20/24] vits no.130-ferrous fum 27 mg iron-folic acid 800 mcg tablet ( Vitamin) 1 tab PO QDAY 10/15/24 [History Confirmed 10/20/24] Intake Visit Data Collection New Patient or Established: Established Patient (seen at 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 1. Little interest or pleasure in doing things: not at all PHQ-9 8. Moving or speaking so slowly that other people could have noticed? - Or the opposite - being so fidgety or restless that you have been moving around a lot more than usual: not at all Source: Developed by Drs. Anderson Guzman, Jasmin Mia, Yvan Arambula and colleagues, with an educational michela from [employer]. 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 at 32w3 for OBI, transfer from Dr. Cruz. elevated 1 hr GTT: 192. 3 hr:wnl, A1c< 4.9. fetus active, no PTL complaints. TDAP today, FKC bid, review lab with patient: start glucose monitoring 4 x/day, review GDM diet, ptl precaution, discuss fkc, continue PNV, schedule MFM scan, order glucometer/strips and lancets, start low dose ASA, rtc 2 week OB check, ante testing nv. schedule at [facility] for diabetic teaching. rtc 2week, TDAP 09/04/24 -?-?-?-?-?-?-?-?-?-?-?-?- 33w 6d 71.327 kg 116/74 absent cephalic 33 146 active reports good FM, no VB or PTL. no c/o UC. compliant with GDM diet.anf glucose monitoring. sug ars at goal 90%, compliannt with GDM diet. ptl prec given, fkc bid. RTC 2 week obc, will schedule NST/MAURER weekly. MFM pending, rtc 2 week 09/17/24 -?-?-?-?-?-?-?-?-?-?-?-?- 35w 5d 71.781 kg 117/76 absent cephalic 35 145 active fetus active. compliant with GDM diet and glucose monitoring. reports BS at goal. weekly NST and MFM sono pending.denies LOF,VB or UC, FKC bid fkc bid, f/u on week NST/BPP. f/u on MFM sono, GBS today, review GDM diet and glucose monitoring. discuss fkc bid. continue PNV, increase fluid. rtc 1 week obc 09/29/24 -?-?-?-?-?-?-?-?-?-?-?-?- 37w 3d 73.085 kg 120/70 absent cephalic 36 140 active fetus active per patient, sugars at goal 95%, denies uc,no VB,no leaking weekly NST/BPP pending approval, discuss labor precaution, fkc bid, sugars at goal 95%. compliant with gdm diet, continue fkc bid, schedule IOL 10/19/24. rtc 1 week OBC 10/13/24 -?-?-?-?-?-?-?-?-?-?-?-?- 39w 3d 73.255 kg 131/83 occasional cephalic 39 145 active at 39w3d with diet-controlled GDM, BG <150 this week, reports good FM, FHR normal, EFW similar to prior 3.8 kg delivery, GIULIANO 10/17/24. Plan: F/u with Niki next week, induction if not in labor by then, return sooner for CTX, LOF, or ?FM. GIULIANO Calculator Estimated Delivery Date Method Current WG Current Estimate 10/17/24 LMP (Certain) 43w 3d Notes Visit Date: 08/21/24 Last Updated by: Niki Winslow CNM , LMP 01/10/25. EDC: 10/15/24. GDM: 1hr gtt: 192, 3hr gtt wnl, A1c:4.9, O+,abs-,rpr;;nr, rub ni, HBSAG-/HIV-,GC-/CT-, NT/AFP,carrier screen- Office Procedures OB Clinic LOC & Office Proc's Nursing/Assessment Patient Status: Established Patient OB Clinic Nursing Assessment: Medication Reconciliation, Update PMH in EMR and Vital Signs OB Clinic Coordination of Care: Complex Care and Chronic Disease 1-5, Consent,records obtained, informed consent, Lab and Imaging orders and Staff clarify orders Special Needs: Heart tones Established Patient Charge Established Patient Point Assignment: 115 Established Patient Point Charge: EP Level 3 (80-115) Assessment & Plan Diagnosis / Problem List (1) Gestational diabetes mellitus in , diet controlled: Status: Acute Qualifiers: Trimester: third trimester Qualified Code(s): O24.410 - Gestational diabetes mellitus in , diet controlled (2) Normal in multigravida in third trimester: Status: Acute
[2024-10-13 14:46] VITALS: BP 131/83; PULSE 92; RESP 17; TEMP 36.7; O2SAT 95; BMI 30.4
== END 2024-10-13 14:57 | disposition home or self-care (01) ==
LOC: HODSOBC 14:17
PROVIDERS: PCP Internal Medicine; Referring Provider Internal Medicine; Supervising Provider Obstetrics & Gynecology; Visit Provider Obstetrics & Gynecology
DX: O09.893 Supervision of other high risk pregnancies, third trimester (principal); O24.410 Gestational diabetes mellitus in pregnancy, diet controlled; Z3A.39 39 weeks gestation of pregnancy
CPT/HCPCS: 99213; G0463

== ENCOUNTER 2024-10-15 06:36 | Inpatient (IN) | payer MEDICAID, SELFPAY ==
[2024-10-15] VITALS (62 sets, daily range): BP systolic 109–145; BP diastolic 54–83; PULSE 64–119; RESP 16–99; TEMP 36.9–37.4; O2SAT 89–100; BMI 31.2; BMI 30.2
--- NOTE | 2024-10-15 08:49 | PD.LDHP ---
Documentation for date of: 10/15/24 OB Labor/Induct. HPI History of Present Illness : 2 Living children: 1 GIULIANO: 10/19/24 Gestational Age (weeks): 39 Gestational Age (days): 3 History of present illness: 24-year-old 2 para 1-0-0-1 intrauterine at 39 weeks and 3 days by ultrasound done on May 27 showing intrauterine at 19 weeks and 2 days. LMP unsure. patient reports care started with Dr. Cruz and then she transferred to [facility] OB clinic . She is being treated as a gestational diabetic diet control she presented to [facility] complaining of labor pains and noted to be 3 cm dilated and ruptured clear fluid vtx per RN exam Comments: Past medical history: Gestational diabetes mellitus A1 Past surgical history: Denies Family history: Mother has diabetes: Social history: Denies any alcohol drug use or smoking: Review of Systems Review of Systems Narrative Review of Systems: Denies any chest pain palpitations cough fever shortness of breath or lower extremity pain Meds Home Medications and Allergies Home Medications ?Medication ?Instructions ?Recorded ?Confirmed ?Type ferrous sulfate 1 tab PO QDAY 10/15/24 10/15/24 History vits no.130-ferrous fum 1 tab PO QDAY 10/15/24 10/15/24 History 27 mg iron-folic acid 800 mcg tablet ( Vitamin) Allergies Allergy/AdvReac Type Severity Reaction Status Date / Time No Known Allergies Allergy Verified 10/15/24 07:12 OB Exam Physical Exam Vital signs: Pulse BP Pulse Ox 93 123/83 100 10/15/24 06:56 10/15/24 06:56 10/15/24 07:40 Routine Respiratory Exam Comments: Clear to auscultation bilaterally Routine Cardiovascular Exam Comments: Regular rate and rhythm Routine Abdominal Exam Comments: Gravid term size consistent with estimated weight 7-1/2 pounds Routine Extremities Exam Comments: Nontender Routine Skin Exam Comments: No gross rashes or lesions OB Results Labs 10/15/24 09:55 Impressions Impression: Intrauterine at 39 weeks and 3 days Gestational diabetes mellitus class A1 Labor Spontaneous rupture of membranes Anticipate spontaneous vaginal delivery Informed consent was obtained. The patient made aware of the risk complications alternatives and benefits of operative vaginal delivery and delivery and agrees with these modes of delivery if indicated.
[2024-10-15 09:37] LABS: ROM Kit Exp Date# 111527; ROM Kit Lot # 58102387; ROM Swab Mixed By: LV; Rupture of Fetal Membranes Positive (Negative); Swb Mxed in Solvent 1 min? Yes
[2024-10-15] MEDS: Ampicillin Inj 2,000 MG in SODIUM CHLORIDE 0.9% (POP) 100 ML 200 MG IV (10:38)
[2024-10-15 10:39] LABS: Basophils # (Auto) 0.0 Thou/mm3 (0.0-0.2); Basophils % (Auto) 0 % (0-2.5); Eosinophils # (Auto) 0.0 Thou/mm3 (0.0-0.5); Eosinophils % (Auto) 0 % (0-10); Hematocrit 29.9 % (36.0-46.0); Hemoglobin 9.7 g/dL (12.0-16.0); Immature Granulocytes Auto 0.02 Thou/mm3 (0.00-0.00); Lymphocytes # (Auto) 1.7 Thou/mm3 (1.0-4.8); Lymphocytes % (Auto) 25 % (10-50); Mean Corpuscular HGB Conc 32.4 g/dl (31.0-37.0); Mean Corpuscular Hemoglobin 26.9 pg (25.0-35.0); Mean Corpuscular Volume 83 fL (80-100); Monocytes # (Auto) 0.4 Thou/mm3 (0.0-0.8); Monocytes % (Auto) 5 % (0-12); Neutrophils # (Auto) 4.6 Thou/mm3 (1.8-7.7); Neutrophils % (Auto) 68 % (37-80); Nucleated Red Blood Cell # 0.00 Thou/mm3 (0.00-0.00); Nucleated Red Blood Cell % 0 /100 WBC (0); Platelet Count 156 Thou/mm3 (140-440); RDW Standard Deviation 46.2 fL (36.4-46.3); Red Blood Count 3.61 Miln/mm3 (4.00-5.20); White Blood Count 6.8 Thou/mm3 (3.6-11.0)
[2024-10-15 11:13] LABS: Syphilis Nonreactive (Nonreactive)
[2024-10-15] MEDS: RINGERS LACTATED 1000 ML 1,000 ML 100 ML IV (11:38)
[2024-10-15] MEDS: OXYTOCIN in NS 30 units 30 UNIT/500 ML BAG IV (14:00)
[2024-10-15] MEDS: Ampicillin Inj 1,000 MG in SODIUM CHLORIDE 0.9% (Popper) 50 ML 50 MG IV (14:40)
[2024-10-15] MEDS: LIDOCAINE HCL 1% 20 ML VIAL INFL (18:56)
[2024-10-15] MEDS: OXYTOCIN in NS 20 units 20 UNIT/1,000 ML BAG 125 UNIT IV (18:58)
[2024-10-15] MEDS: BENZO/LANO/ALOE (Dermoplast) 60 GM CAN 1 SPRAY TOP (19:05)
[2024-10-15] MEDS: METHYLERGONOVINE INJ 0.2 MG/ML VIAL IM (19:50)
[2024-10-15] MEDS: TRANEXAMIC ACID 1,000 MG IVPB 1,000 MG/100 ML BAG 200 MG IV (20:02)
--- NOTE | 2024-10-15 20:20 | OBDSUM_ITS ---
Data (Lee) Data Hx Section: No : 2 Term: 1 : 0 Livin Abortions: Spontaneous & Theraputic: 0 Delivery Data (Lee) Labor Data Initiation of labor: Augmentation Induction/Augmentation Agent: Pitocin ROM date: 10/15/24 ROM time: 08:50 Amniotic membrane rupture type: Spontaneous Amniotic fluid description: Clear and Light Meconium Delivery Data EDC: 10/19/24 EDC calculated by:: LMP/early US confirmation Onset of labor date: 10/15/24 Onset of labor time: 14:00 Complete dilation date: 10/15/24 Complete dilation time: 18:50 [place] delivery date: 10/15/24 delivery time: 18:51 Gestational age (weeks): 39 Gestational age (days): 3 Placenta delivery date: 10/15/24 Placenta delivery time: 19:02 Stage 1 total time: Labor - Stage 1 Duration 4 hours and 50 minutes Delivered by: Delivery nurse: chela campbell [place] nurse: wilfredo campbell Telegraph Messenger at delivery: No Support person(s) at delivery: fob Other staff at delivery: easton campbell Delivery Method Delivery method: Normal Vaginal Delivery Presentation: Vertex position: OA Anesthesia Type Anesthesia Type: Local Placenta Placenta delivery description: Spontaneous Cord blood sent to lab: Yes cord blood collection: Cord Blood Type Episiotomy Episiotomy description: None Lacerations #1: Perineal: 2nd degree Perineal repair Sutures used for repair: 3.0 Chromic EBL Estimated blood loss (ml): 350 Umbilical Cord cord description: 3 Vessels Complications Complications: None Data (Lee) [place] Data order: 1 's gender: Female Identification band number: [id number] weight (gms): 7 lb 1.406 oz Weight (pounds): 7 lbs and 1.4 ozs [place] length: 19.49 in 1 minute: 9 5 minutes: 9
--- NOTE | 2024-10-15 20:23 | OBDSUM_ITS ---
Data (Lee) Data Hx Section: No : 2 Term: 1 : 0 Livin Abortions: Spontaneous & Theraputic: 0 Delivery Data (Lee) Labor Data Initiation of labor: Augmentation Induction/Augmentation Agent: Pitocin ROM date: 10/15/24 ROM time: 08:50 Amniotic membrane rupture type: Spontaneous Amniotic fluid description: Clear and Light Meconium Delivery Data EDC: 10/19/24 EDC calculated by:: LMP/early US confirmation Onset of labor date: 10/15/24 Onset of labor time: 14:00 Complete dilation date: 10/15/24 Complete dilation time: 18:50 [place] delivery date: 10/15/24 delivery time: 18:51 Gestational age (weeks): 39 Gestational age (days): 3 Placenta delivery date: 10/15/24 Placenta delivery time: 19:02 Stage 1 total time: Labor - Stage 1 Duration 4 hours and 50 minutes Delivered by: Delivery nurse: chela campbell [place] nurse: wilfredo campbell Party Bus Driver at delivery: No Support person(s) at delivery: fob Other staff at delivery: easton campbell Delivery Method Delivery method: Normal Vaginal Delivery Presentation: Vertex position: OA Anesthesia Type Anesthesia Type: Local Placenta Placenta delivery description: Spontaneous Cord blood sent to lab: Yes cord blood collection: Cord Blood Type Episiotomy Episiotomy description: None Lacerations #1: Perineal: 2nd degree Perineal repair Sutures used for repair: 3.0 Chromic EBL Estimated blood loss (ml): 350 Umbilical Cord cord description: 3 Vessels Complications Complications: None Data (Lee) [place] Data order: 1 's gender: Female Identification band number: [id number] weight (gms): 7 lb 1.406 oz Weight (pounds): 7 lbs and 1.4 ozs [place] length: 19.49 in 1 minute: 9 5 minutes: 9
--- NOTE | 2024-10-15 21:40 | ESDS_ITS ---
DS: Providers Provider Date of admission: 10/15/24 09:45 Primary care physician: Eriberto Christie MD Admitting Provider: Gage Ford MD Attending Provider on Admission: Gage Ford MD Consults: 10/15/24 21:19 Referral Routine Comment: Attending Provider on DC: Gage Ford MD Discharging Provider: Gage Ford MD DS: Diagnosis Problem List Completed Was Problem List Reviewed/Reconciled?: Yes Summary/Hosp Course Brief History: 24-year-old 2 para 1-0-0-1 intrauterine at 39 weeks and 3 days by ultrasound done on May 27 showing intrauterine at 19 weeks and 2 days. LMP unsure. patient reports care started with Dr. Cruz and then she transferred to [facility] clinic . She is being treated as a gestational diabetic diet control she presented to [facility] complaining of labor pains and noted to be 3 cm dilated and ruptured clear fluid vtx per RN exam Peripartum Data Delivery Method: Normal Vaginal Delivery Episiotomy Description: None Laceration Description: see Delivery Summary Time Spent with Patient Time attestation: Total time spent providing and/or coordinating discharge services: Exam Vital Signs Temp Pulse Resp BP Pulse Ox O2 Del Method 98.4 F 72 18 145/77 H 98 Room Air 10/15/24 17:00 10/15/24 21:04 10/15/24 17:00 10/15/24 21:04 10/15/24 10:52 10/15/24 06:54 Discharge Plan Plan Patient Disposition: HOME (Self Care) Patient condition on transfer: Stable Prescriptions/Referrals Prescriptions/Med Rec: New ibuprofen 600 mg tablet 600 mg PO Q6H PRN (Reason: pain) Qty: 30 0RF No Action (DME) blood-glucose meter Kit See Rx Instructions .MEDSUPPLY Qty: 1 0RF Rx Instructions: As directed (DME) Blood Glucose Test Strip See Rx Instructions .MEDSUPPLY Qty: 10 0RF Rx Instructions: As directed (DME) lancets Misc See Rx Instructions .MEDSUPPLY Qty: 100 0RF Rx Instructions: As directed Vitamin 27 mg iron- 800 mcg tablet 1 tab PO QDAY ferrous sulfate 1 tab PO QDAY Referrals: Eriberto Christie MD [Primary Care Provider] - Patient/Caregiver Discharge Instructions Discharge Activity: activity as tolerated Other Discharge Activity Instructions:: Follow up office 6 weeks Print Language: Latvian Stand Alone Forms: Gwendolyn Award Info., Patient Portal Info Letter Planned Discharge Date 10/16/24
[2024-10-16] VITALS (7 sets, daily range): BP systolic 97–118; BP diastolic 53–68; PULSE 76–95; RESP 14–18; TEMP 36.3–37.4; O2SAT 16–98
[2024-10-16 03:10] LABS: Basophils # (Auto) 0.0 Thou/mm3 (0.0-0.2); Basophils % (Auto) 0 % (0-2.5); Eosinophils # (Auto) 0.0 Thou/mm3 (0.0-0.5); Eosinophils % (Auto) 0 % (0-10); Hematocrit 28.9 % (36.0-46.0); Hemoglobin 9.6 g/dL (12.0-16.0); Immature Granulocytes Auto 0.03 Thou/mm3 (0.00-0.00); Lymphocytes # (Auto) 1.7 Thou/mm3 (1.0-4.8); Lymphocytes % (Auto) 15 % (10-50); Mean Corpuscular HGB Conc 33.2 g/dl (31.0-37.0); Mean Corpuscular Hemoglobin 26.5 pg (25.0-35.0); Mean Corpuscular Volume 80 fL (80-100); Monocytes # (Auto) 0.7 Thou/mm3 (0.0-0.8); Monocytes % (Auto) 6 % (0-12); Neutrophils # (Auto) 9.2 Thou/mm3 (1.8-7.7); Neutrophils % (Auto) 79 % (37-80); Nucleated Red Blood Cell # 0.00 Thou/mm3 (0.00-0.00); Nucleated Red Blood Cell % 0 /100 WBC (0); Platelet Count 162 Thou/mm3 (140-440); RDW Standard Deviation 44.8 fL (36.4-46.3); Red Blood Count 3.62 Miln/mm3 (4.00-5.20); White Blood Count 11.7 Thou/mm3 (3.6-11.0)
[2024-10-16] MEDS: ACETAMINOPHEN 325 MG TABLET 650 MG PO (03:50)
--- NOTE | 2024-10-16 20:52 | ESPR_ITS ---
Subjective Subjective Interval history: The patient is a 24-year-old -0-0-1 status post vaginal delivery yesterday evening at [address] Ford. Patient is doing well day #1. She is tolerating a general diet, passing flatus her bleeding is minimal. She would like to go home even though it is 8:30 at night. It has been greater than 24 hours since she delivered. She is breast-feeding. Her pain is controlled with ibuprofen. She is Central [place]-speaking only and the entire exam and history is taken with Bess DOCKERY in place. Exam Vital Signs Temp Pulse Resp BP Pulse Ox O2 Del Method 97.3 F 76 18 116/66 98 Room Air 10/16/24 20:00 10/16/24 20:00 10/16/24 20:00 10/16/24 20:00 10/16/24 20:00 10/16/24 20:00 Narrative Exam Fundus is firm at umbilicus. Extremities show no significant edema or erythema. Objective Labs 10/16/24 02:27 Labs: Laboratory Results - last 24 hr 10/16/24 02:27 WBC 11.7 H D RBC 3.62 L Hgb 9.6 L Hct 28.9 L MCV 80 MCH 26.5 MCHC 33.2 RDW Std Deviation 44.8 Plt Count 162 Neut % (Auto) 79 Lymph % (Auto) 15 [place] % (Auto) 6 Eos % (Auto) 0 Baso % (Auto) 0 Neut # (Auto) 9.2 H Lymph # (Auto) 1.7 [place] # (Auto) 0.7 Eos # (Auto) 0.0 Baso # (Auto) 0.0 Immature Gran # (Auto) 0.03 H Absolute Nucleated RBC 0.00 Immature Gran % 0 Nucleated RBC % 0 Assessment & Plan Problem List (1) Gestational diabetes mellitus in , diet controlled: Status: Acute Assessment and plan: Gestational diabetic diet. Keep track of blood sugars (2) Term delivered: Status: Acute Assessment and plan: Patient is status post uncomplicated term vaginal delivery. Stable and uncomplicated course. Discharge instructions given. Follow-up in clinic to see Niki Winslow in 6 weeks. Time Spent With Patient Time: Total time spent is greater than 50% in coordination of care (as documented) at patient's floor/unit and/or counseling patient: Time with patient: less than 15 minutes
--- NOTE | 2024-10-16 20:57 | PD.LDDS ---
DS: Providers Provider Date of admission: 10/15/24 09:45 Primary care physician: Eriberto Christie MD Admitting Provider: Gage Ford MD Attending Provider on Admission: Gage Ford MD Consults: 10/15/24 21:19 Referral Routine Comment: Attending Provider on DC: Roseanna Silverio MD ([facility] Clinic) Discharging Provider: Roseanna Silverio MD ([facility] Clinic) Anticipated date of discharge: 10/16/24 DS: Diagnosis Discharge Diagnosis (1) Term delivered: Status: Acute Assessment & Plan: Discharge instructions given. No intercourse tampons douching bathtubs or swimming x 6 weeks. (2) Gestational diabetes mellitus in , diet controlled: Status: Acute Assessment & Plan: Follow-up blood sugars and diabetic diet follow-up with Niki Winslow Problem List Completed Was Problem List Reviewed/Reconciled?: Yes Summary/Hosp Course Brief History: 24-year-old 2 para 1-0-0-1 intrauterine at 39 weeks and 3 days by ultrasound done on May 27 showing intrauterine at 19 weeks and 2 days. LMP unsure. patient reports care started with Dr. Cruz and then she transferred to [facility] OB clinic . She is being treated as a gestational diabetic diet control she presented to [facility] complaining of labor pains and noted to be 3 cm dilated and ruptured clear fluid vtx per RN exam Patient underwent an uncomplicated vaginal delivery approximately 1900 on 10/15/[address] Ford. Please see delivery note for further details. The patient had an uncomplicated course. Her predelivery hemoglobin is 9.7 postdelivery was 9.6. Patient's vital signs were stable and she was afebrile. She desired to be discharged on day #1. Peripartum Data Delivery Method: Normal Vaginal Delivery Episiotomy Description: None Laceration Description: see Delivery Summary complications: none Status at Discharge Cognitive/behavioral status at discharge: Patient is alert and oriented x 3 in no apparent distress Functional status at discharge: independent ambulation Overall status at discharge: patient is progressing back to baseline Time Spent with Patient Time attestation: Total time spent providing and/or coordinating discharge services: Time spent: Less than 30 minutes Specific discharge activities: Pelvic rest x 6 weeks. No intercourse tampons douching swimming or bathtubs x 6 weeks. Patient to call for heavy vaginal bleeding, fevers, or signs of severe depression. Exam Vital Signs Temp Pulse Resp BP Pulse Ox O2 Del Method 97.3 F 76 18 116/66 98 Room Air 10/16/24 20:00 10/16/24 20:00 10/16/24 20:00 10/16/24 20:00 10/16/24 20:00 10/16/24 20:00 Narrative Exam Patient is alert and oriented x 3 in no apparent distress. Fundus is firm at umbilicus extremities show significant edema or erythema Discharge Plan Plan Patient Disposition: HOME (Self Care) Patient condition on transfer: Stable Prescriptions/Referrals Prescriptions/Med Rec: New ibuprofen 600 mg tablet 600 mg PO Q6H PRN (Reason: pain) Qty: 30 0RF No Action (DME) blood-glucose meter Kit See Rx Instructions .MEDSUPPLY Qty: 1 0RF Rx Instructions: As directed (DME) Blood Glucose Test Strip See Rx Instructions .MEDSUPPLY Qty: 10 0RF Rx Instructions: As directed (DME) lancets Misc See Rx Instructions .MEDSUPPLY Qty: 100 0RF Rx Instructions: As directed Vitamin 27 mg iron- 800 mcg tablet 1 tab PO QDAY ferrous sulfate 1 tab PO QDAY Referrals: Eriberto Christie MD [Primary Care Provider] - Patient/Caregiver Discharge Instructions Discharge Activity: activity as tolerated Other Discharge Activity Instructions:: Follow up office 6 weeks Other Discharge Diet Instructions: Diabetic General Diet as tolerated Education Materials: After a Vaginal , : Caring for Yourself Print Language: Mongolian Stand Alone Forms: Gwendolyn Award Info., Patient Portal Info Letter Discharge Order Discharge Orders: Discharge (Routine); Ordered 10/16/24 Ordered By: Roseanna Silverio (OB Clinic) Planned Discharge Date 10/16/24 (2) Gestational diabetes mellitus in , diet controlled Qualifiers: Trimester: third trimester Qualified Code(s): O24.410 - Gestational diabetes mellitus in , diet controlled
--- NOTE | 2024-10-17 02:08 | PC.NURSE ---
Patient discharged home with spouse at 2220. Patient given discharge instructions with acupressurist. Patient educated on reasons to return to hospital for self and . Patient instructed to follow up with ob provider and provider at next scheduled appt. All questions answered and encouraged.
== END 2024-10-16 22:20 | disposition home or self-care (01) | DRG 560 ==
LOC: S4SX 10-16 10:49 → S4NX 10-16 16:21
PROVIDERS: Admitting Provider Specialist; PCP Family Medicine; Visit Provider Specialist
DX: O24.420 Gestational diabetes mellitus in childbirth, diet controlled (principal); Z37.0 Single live birth; Z3A.39 39 weeks gestation of pregnancy; O70.1 Second degree perineal laceration during delivery; O77.0 Labor and delivery complicated by meconium in amniotic fluid
CPT/HCPCS: 36415; 59025; 59409; 84112; 85025; 86780; 86850; 86900; 86901; 86923; 94762; J0290; J2210; J2590; J3490; J7050; J7120; S0191; A9270

== ENCOUNTER 2024-10-20 09:04 | Outpatient (AMB) | payer MEDICAID, SELFPAY ==
--- NOTE | 2024-10-20 09:30 | AMBOBPPN_ITS ---
Vital Signs 10/20/24 09:31 Height 1.55 m Height Method Stated Weight 66.791 kg Weight Measurement Method Standing Scale BMI 27.8 BP 117/76 Blood Pressure Source Automatic Cuff Blood Pressure Location Right Upper Arm Position Sitting Respiration 17 Pulse 94 Pulse Source Monitor Temp 98.0 F Temp Source Temporal Artery Scan Pulse Oximetry (%) 98 Oxygen Delivery Method Room Air Allergies/Home Meds Allergies & Medications Allergies No Known Allergies Allergy (Verified 10/20/24 09:33) Medication Reconciliation blood sugar diagnostic (Blood Glucose Test strips) #10 ea 08/21/24 [Rx Confirmed 10/20/24] blood-glucose meter #1 ea 08/21/24 [Rx Confirmed 10/20/24] lancets #100 ea 08/21/24 [Rx Confirmed 10/20/24] ferrous sulfate 1 tab PO QDAY 10/15/24 [History Confirmed 10/20/24] ibuprofen 600 mg tablet 600 mg PO Q6H PRN pain #30 tabs 10/15/24 [Rx Confirmed 10/20/24] vits no.130-ferrous fum 27 mg iron-folic acid 800 mcg tablet ( Vitamin) 1 tab PO QDAY 10/15/24 [History Confirmed 10/20/24] Intake Visit Data Collection New Patient or Established: Established Patient (seen at [facility] within 3 years) Reason for Visit:: Seen by Clinical Staff ONLY (RN/MA): No Business Services Tech Required: No Do You Feel Safe at Home: Yes Authorities Contacted: N/A PCP or OBGYN visit in last 3 months: Yes Date of Last PCP or OBGYN visit: 10/16/24 Hx Now: No Are you currently on any form of Control: No Pain Present Currently: Yes Pain Location: Abdomen Pain Scale Used: Cisneros-Junior/Numerical Pain scale:: 3 Smoking Status Smoking Status: Never smoker DERIVATIVES TRADER: Past Medical History Past Medical History: No Hx Neurological Disorders, No Hx Breast Cancer, No Hx Cardiac Disorders, No Hx Cancer, No Hx Gastrointestinal Disorders, No Hx Renal Disease, No Hx Diabetes Mellitus Type 1 and No Hx Diabetes Mellitus Type 2 Questionnaires Covid-19 Vaccine Questionnaire Has patient been vacinated for Covid-19 Have you been vacinated for Covid-19: No Social History Living Situation History Marital Status: Lives With: Family Housing: House Tobacco History Smoking Status: Never smoker Second Hand Smoke Exposure: No Alcohol History Alcohol Intake: Never Domestic Abuse History Do You Feel Safe at Home: Yes EPDS - PP Depression Screening [place] Pospartum Depression Screen I have been able to laugh and see the funny side of things: (0) As much as I always could I have looked forward with enjoyment to things: (0) As much as I ever did I have blamed myself unnecessarily when things went wrong: (0) No, never I have been anxious or worried for no good reason: (0) No, not at all I have felt scared or panicky for no very good reason: (0) No, not at all Things have been getting on top of me: (0) No, I have been coping as well as ever I have been so unhappy that I have had difficulty sleeping: (0) No, not at all I have felt sad or miserable: (0) No, not at all I have been so unhappy that I have been crying: (0) No, never The thought of harming myself has occurred to me: (0) Never EPDS completed yes Care OB Visit Log OB Flowsheet Initial Weight: Not Recorded Date -?-?-?-?-?-?-?-?-?-?-?-?- EGA Weight BP Alb Glu CTX Pres Fundal ht FHR Mov Dilation Station Effacement Hx Notes Visit Note 08/21/24 -?-?-?-?-?-?-?-?-?-?-?-?- 31w 6d 71.384 kg 128/82 absent cephalic 31 146 active 24 yo G@p! at 32w3 for OBI, transfer from Dr. Cruz. elevated 1 hr GTT: 192. 3 hr:wnl, A1c< 4.9. fetus active, no PTL complaints. TDAP today, FKC bid, review lab with patient: start glucose monitoring 4 x/day, review GDM diet, ptl precaution, discuss fkc, continue PNV, schedule MFM scan, order glucometer/strips and lancets, start low dose ASA, rtc 2 week OB check, ante testing nv. schedule at [facility] for diabetic teaching. rtc 2week, TDAP 09/04/24 -?-?-?-?-?-?-?-?-?-?-?-?- 33w 6d 71.327 kg 116/74 absent cephalic 33 146 active reports good FM, no VB or PTL. no c/o UC. compliant with GDM diet.anf glucose monitoring. sugars at goal 90%, compliannt with GDM diet. ptl prec given, fkc bid. RTC 2 week obc, will schedule NST/MAURER weekly. MFM pending, rtc 2 week 09/17/24 -?-?-?-?-?-?-?-?-?-?-?-?- 35w 5d 71.781 kg 117/76 absent cephalic 35 145 active fetus active. compliant with GDM diet and glucose monitoring. reports BS at goal. weekly NST and MFM sono pending.denies LOF,VB or UC, FKC bid fkc bid, f/u on week NST/BPP. f/u on MFM sono, GBS today, review GDM diet and glucose monitoring. discuss fkc bid. continue PNV, increase fluid. rtc 1 week obc 09/29/24 -?-?-?-?-?-?-?-?-?-?-?-?- 37w 3d 73.085 kg 120/70 absent cephalic 36 140 active fetus active per patient, sugars at goal 95%, denies uc,no VB,no leaking weekly NST/BPP pending approval, discuss labor precaution, fkc bid, sugars at goal 95%. compliant with gdm diet, continue fkc bid, schedule IOL 10/19/24. rtc 1 week OBC GIULIANO Calculator Estimated Delivery Date Method Current WG Current Estimate 10/17/24 LMP (Certain) 40w 3d Notes Visit Date: 08/21/24 Last Updated by: Niki Winslow, JOSEF , LMP 01/10/25. EDC: 10/15/24. GDM: 1hr gtt: 192, 3hr gtt wnl, A1c:4.9, O+,abs-,rpr;;nr, rub ni, HBSAG-/HIV-,GC-/CT-, NT/AFP,carrier screen- HPI Interval History: This is a 24-year-old 2 para 2 for 2-week visit. Patient had a vaginal delivery October 15, 2024. She had a baby girl weighing 7 pounds. She is breast-feeding at this time. She has good support at home. Father the baby is involved. No history of depression. Patient is happy. Patient had an uncomplicated vaginal . And history was uncomplicated. She has no interval complaints. Patient is not sexually active Was or delivery considered high risk: No Delivery type: vaginal Was labor induced: no Gestational age at delivery (weeks): 40 Delivery date: 10/15/24 Delivering provider: abhijit Delivery complications: No Is patient infant: Yes Is patient sexually active: No Contraception planned: BCP Review of Systems Review of Systems ROS limited to current DERIVATIVES TRADER complaints: Yes Exam Narrative Physical exam: Euthyroid. Normal heart rate and rhythm. Breasts are soft. No signs of mastit is. Abdomen is soft, nontender. Uterus is involuted well below the umbilicus. Perineum is intact well-healed. No signs of infection. Small lochia. Negative Homans' sign. 2+ DTRs. Office Procedures OB Clinic LOC & Office Proc's Nursing/Assessment Patient Status: Established Patient OB Clinic Nursing Assessment: Medication Reconciliation, Update PMH in EMR and Vital Signs OB Clinic Coordination of Care: Complex Care and Chronic Disease 1-5, Consent,records obtained, informed consent, Education Simp Pt/Fam and Staff clarify orders Established Patient Charge Established Patient Point Assignment: 85 Post Follow-up Visit Post Follow up Visit: Yes Assessment & Plan Diagnosis / Problem List (1) Routine Follow-Up: (2) 2 weeks follow-up: Status: Acute Plan No sex. Return in 4 weeks for control pill start. Discussed latching and breast-feeding positions. Continue vitamins. Increase fluids and rest. No heavy lifting. Increase vegetables and fruits. Care Reviewed delivery summary and any complications: Yes Uterus involuted to: below umbilicus Perineal / incision healing noted: Yes Screened for depression: Yes Depression counseling provided: No Discussed family planning & contraception: Yes Contraception planned: BCP Counseling on safe resumption of sexual activity: Yes Counseling on gradual excercise: Yes Discussed and concerns (describe), provided support: Yes Referred to marketing programs specialist: No Counseled on good nutrition, hydration, and self care: Yes Reviewed vaccine status: No Chronic & current problems reconciled on problem list: Yes Additional follow up plans: rtc 4 week for contraception/OCP Infant care discussed; questions answered: feeding Follow up: routine/prn Additional counseling & anticipatory guidance provided: No sex for 4 weeks. Continue vitamins and iron. Increase fluids. Discussed latching and breast-feeding positions. I reviewed control pill compliance and the minipill. I discussed the diet and exercise with patient she can go slow. (FP) Tobacco Smoking Status: Never smoker
[2024-10-20 09:31] VITALS: BP 117/76; PULSE 94; RESP 17; TEMP 36.7; O2SAT 98; BMI 27.8
== END 2024-10-20 10:44 | disposition home or self-care (01) ==
PROVIDERS: PCP Internal Medicine; Referring Provider Internal Medicine; Supervising Provider Advanced Practice Midwife; Visit Provider Advanced Practice Midwife
DX: Z39.2 Encounter for routine postpartum follow-up (principal); Z39.1 Encounter for care and examination of lactating mother

== ENCOUNTER 2024-11-17 15:31 | Outpatient (AMB) | payer MEDICAID, SELFPAY ==
--- NOTE | 2024-11-17 15:40 | AMBOBPPN_ITS ---
Vital Signs 11/17/24 15:45 Height 1.55 m Height Method Stated Weight 68.039 kg Weight Measurement Method Standing Scale BMI 28.3 BP 115/74 Blood Pressure Source Automatic Cuff Blood Pressure Location Right Upper Arm Position Sitting Respiration 17 Pulse 79 Pulse Source Monitor Temp 98.0 F Temp Source Temporal Artery Scan Pulse Oximetry (%) 98 Oxygen Delivery Method Room Air Allergies/Home Meds Allergies & Medications Allergies No Known Allergies Allergy (Verified 11/17/24 15:48) Medication Reconciliation blood sugar diagnostic (Blood Glucose Test strips) #10 ea 08/21/24 [Rx Confirmed 10/20/24] blood-glucose meter #1 ea 08/21/24 [Rx Confirmed 10/20/24] lancets #100 ea 08/21/24 [Rx Confirmed 10/20/24] ibuprofen 600 mg tablet 600 mg PO Q6H PRN pain #30 tabs 10/15/24 [Rx Confirmed 11/17/24] Intake Visit Data Collection New Patient or Established: Established Patient (seen at [facility] within 3 years) Reason for Visit:: 4 WEEKS Seen by Clinical Staff ONLY (RN/MA): No Manager Actuarial Required: No Do You Feel Safe at Home: Yes Authorities Contacted: N/A PCP or OBGYN visit in last 3 months: Yes Date of Last PCP or OBGYN visit: 10/20/24 Hx Now: No Are you currently on any form of Control: No Pain Present Currently: No Pain Scale Used: Cisneros-Junior/Numerical Pain scale:: 0 Smoking Status Smoking Status: Never smoker SURVEY METHODOLOGIST: Past Medical History Past Medical History: No Hx Neurological Disorders, No Hx Breast Cancer, No Hx Cardiac Disorders, No Hx Cancer, No Hx Gastrointestinal Disorders, No Hx Renal Disease, No Hx Diabetes Mellitus Type 1 and No Hx Diabetes Mellitus Type 2 Questionnaires Covid-19 Vaccine Questionnaire Has patient been vacinated for Covid-19 Have you been vacinated for Covid-19: Yes Social History Living Situation History Marital Status: Lives With: Family Housing: House Tobacco History Smoking Status: Never smoker Second Hand Smoke Exposure: No Alcohol History Alcohol Intake: Never Domestic Abuse History Do You Feel Safe at Home: Yes EPDS - PP Depression Screening [place] [facility] Depression Screen I have been able to laugh and see the funny side of things: (0) As much as I always could I have looked forward with enjoyment to things: (0) As much as I ever did I have blamed myself unnecessarily when things went wrong: (2) Yes, some of the time I have been anxious or worried for no good reason: (2) Yes, sometimes I have felt scared or panicky for no very good reason: (1) No, not much Things have been getting on top of me: (1) No, most of the time I have coped quite well I have been so unhappy that I have had difficulty sleeping: (0) No, not at all I have felt sad or miserable: (1) Not very often I have been so unhappy that I have been crying: (1) Only occasionally The thought of harming myself has occurred to me: (0) Never EPDS completed yes Care OB Visit Log OB Flowsheet Initial Weight: Not Recorded Date -?-?-?-?-?-?-?-?-?-?-?-?- EGA Weight BP Alb Glu CTX Pres Fundal ht FHR Mov Dilation Station Effacement Hx Notes Visit Note 08/21/24 -?-?-?-?-?-?-?-?-?-?-?-?- 31w 6d 71.384 kg 128/82 absent cephalic 31 146 active 24 yo G@p! at 32w3 for OBI, transfer from Dr. Cruz. elevated 1 hr GTT: 192. 3 hr:wnl, A1c< 4.9. fetus active, no PTL complaints. TDAP today, FKC bid, review lab with patient: start glucose monitoring 4 x/day, review GDM diet, ptl precaution, discuss fkc, continue PNV, schedule MFM scan, order glucometer/strips and lancets, start low dose ASA, rtc 2 week OB check, ante testing nv. schedule at [facility] for diabetic teaching. rtc 2week, TDAP 09/04/24 -?-?-?-?-?-?-?-?-?-?-?-?- 33w 6d 71.327 kg 116/74 absent cephalic 33 146 active reports good FM, no VB or PTL. no c/o UC. compliant with GDM diet.anf glucose monitoring. sugars at goal 90%, compliannt with GDM diet. ptl prec given, fkc bid. RTC 2 week obc, will schedule NST/MAURER weekly. MFM pending, rtc 2 week 09/17/24 -?-?-?-?-?-?-?--?-?-?-?-?- 35w 5d 71.781 kg 117/76 absent cephalic 35 145 active fetus active. compliant with GDM diet and glucose monitoring. reports BS at goal. weekly NST and MFM sono pending.denies LOF,VB or UC, FKC bid fkc bid, f/u on week NST/BPP. f/u on MFM sono, GBS today, review GDM diet and glucose monitoring. discuss fkc bid. continue PNV, increase fluid. rtc 1 week obc 09/29/24 -?-?-?-?-?-?-?-?-?-?-?-?- 37w 3d 73.085 kg 120/70 absent cephalic 36 140 active fetus active per patient, sugars at goal 95%, denies uc,no VB,no leaking weekly NST/BPP pending approval, discuss labor precaution, fkc bid, sugars at goal 95%. compliant with gdm diet, continue fkc bid, schedule IOL 10/19/24. rtc 1 week OBC 10/13/24 -?-?-?-?-?-?-?-?-?-?-?-?- 39w 3d 73.255 kg 131/83 occasional cephalic 39 145 active at 39w3d with diet-controlled GDM, BG <150 this week, reports good FM, FHR normal, EFW similar to prior 3.8 kg delivery, GIULIANO 10/17/24. Plan: F/u with Niki next week, induction if not in labor by then, return sooner for CTX, LOF, or ?FM. GIULIANO Calculator Estimated Delivery Date Method Current WG Current Estimate 10/17/24 LMP (Certain) 44w 3d Comments: patient delivered 10/15/24 Notes Visit Date: 08/21/24 Last Updated by: Niki Winslow CNM , LMP 01/10/25. EDC: 10/15/24. GDM: 1hr gtt: 192, 3hr gtt wnl, A1c:4.9, O+,abs-,rpr;;nr, rub ni, HBSAG-/HIV-,GC-/CT-, NT/AFP,carrier screen- HPI Interval History: 24-year-old 4 para 2 for 6-week . Patient had a vaginal October 16, 2027. She went into labor spontaneously and was augmented. History of GDM on diet good control. Patient had a baby girl weighing 7 pounds. She is breast and bottlefeeding. She is happy no depression. She plans to use Depo. She has not had a period yet. Siblings are adjusting. She has limited help at home. No complaints Was or delivery considered high risk: Yes Delivery type: vaginal (GDM diet) Was labor induced: no (augmented) Gestational age at delivery (weeks): 40 Delivery date: 10/15/24 Delivering provider: abhijit Delivery complications: No Delivery complications comment: no Is patient : Yes Is patient sexually active: No Contraception planned: depo Review of Systems Review of Systems ROS limited to current SURVEY METHODOLOGIST complaints: Yes Exam Narrative Physical exam: Normal heart rate and rhythm. Lungs clear no wheezes. Abdomen is soft nontender. Uterus well involuted. Perineum is intact no lacerations. No swelling. Small lochia. Negative Homans' sign. 2+ DTRs. No edema no swelling. Breasts are soft General Limitations: no limitations General Appearance: alert, in no apparent distress, comfortable, cooperative, healthy appearing, well developed and well groomed Head Head exam: atraumatic, normocephalic and normal inspection Neck Neck exam: Present normal inspection, full ROM and trachea midline Resp Respiratory exam: Present normal lung sounds bilaterally Card Cardiovascular exam: Present regular rate, normal rhythm and normal heart sounds External exam: Present normal external exam Speculum exam: Present normal speculum exam Bimanual exam: Present normal bimanual exam Psych Psychiatric exam: Present normal affect and normal mood Skin Skin exam: Present warm, dry, intact and normal color Office Procedures OB Clinic LOC & Office Proc's Nursing/Assessment Patient Status: Established Patient OB Clinic Nursing Assessment: Medication Reconciliation, Update PMH in EMR and V ital Signs OB Clinic Coordination of Care: Complex Care and Chronic Disease 1-5, Consent,records obtained, informed consent, Education Simp Pt/Fam and Staff clarify orders Established Patient Charge Established Patient Point Assignment: 85 Post Follow-up Visit Post Follow up Visit: Yes Assessment & Plan Diagnosis / Problem List (1) 6 weeks follow-up: Status: Acute Plan No sex. Depo next visit. Continue GDM diet for weight control. Patient needs a 2-hour GTT next visit. Discussed diet and regular exercise. We reviewed Depo side effects and complications. Walk 40 minutes a day. Increase fluids. Return in 2 weeks for Depo Care Reviewed delivery summary and any complications: Yes Uterus involuted to: 3 below Perineal / incision healing noted: Yes Screened for depression: Yes Depression counseling provided: No Discussed family planning & contraception: Yes Contraception planned: depo Counseling on safe resumption of sexual activity: Yes Counseling on gradual excercise: Yes Discussed and concerns (describe), provided support: Yes Referred to rn documentation specialist: No Counseled on good nutrition, hydration, and self care: Yes Reviewed vaccine status: No Chronic & current problems reconciled on problem list: Yes Additional follow up plans: 2 hr gtt NV. depo NV. continue PNV, diet and exercise. discuss latching, increase fluid. rtc 2 week Infant care discussed; questions answered: feeding Follow up: routine/prn
[2024-11-17 15:45] VITALS: BP 115/74; PULSE 79; RESP 17; TEMP 36.7; O2SAT 98; BMI 28.3
== END 2024-11-17 16:56 | disposition home or self-care (01) ==
LOC: HODSOBC 15:31
PROVIDERS: PCP Internal Medicine; Referring Provider Internal Medicine; Supervising Provider Advanced Practice Midwife; Visit Provider Advanced Practice Midwife
DX: Z39.2 Encounter for routine postpartum follow-up (principal); Z39.1 Encounter for care and examination of lactating mother; O24.430 Gestational diabetes mellitus in the puerperium, diet controlled
CPT/HCPCS: Z1038